=== PATIENT | male | born 1975 | race Hispanic/Latino ===

== ENCOUNTER 2018-08-17 16:31 | Inpatient (IN) | payer OTHER ==
[~2018-08-17] VITALS: Ht 172.7 cm; Wt 81.6 kg
[2018-08-17 17:10] LABS: BASOPHILS % (AUTO) 0.4 % (0.0-5.0); EOSINOPHILS % (AUTO) 1.1 % (0.0-8.0); HEMATOCRIT 46.7 % (42-54); LYMPHOCYTES % (AUTO) 10.5 % (21.0-51.0); MEAN CORPUSCULAR HEMOGLOBIN 27.6 pg (27.0-33.0); MEAN CORPUSCULAR HGB CONC 32.8 g/dL (32.0-36.0); MEAN CORPUSCULAR VOLUME 84.3 fL (79-99); MONOCYTES % (AUTO) 7.8 % (3.0-13.0); NEUTROPHILS % (AUTO) 80.2 % (40.0-77.0); PLATELET COUNT (AUTO) 207 K/uL (130-400); RED BLOOD CELL COUNT(AUTO) 5.53 MIL/uL (4.50-6.20); RED CELL DISTRIBUTION WIDTH 13.6 % (11.0-15.5); WHITE BLOOD COUNT (AUTO) 7.7 K/uL (4.8-10.8)
[2018-08-17 17:21] LABS: CREATININE 1.2 mg/dL (0.5-1.5); POTASSIUM 3.7 mmol/L (3.5-5.1)
[2018-08-17] MEDS ORDERED: ONDANSETRON HCL 4 MG/2 ML VIAL ONE (17:22)
[2018-08-17] MEDS ORDERED: MORPHINE SULFATE 4 MG/1ML SYG ONE (17:23)
[2018-08-17 17:34] LABS: ALBUMIN 3.5 g/dL (3.5-5.0); BILIRUBIN,TOTAL 0.6 mg/dL (0.2-1.0); TOTAL PROTEIN, SERUM 8.2 g/dL (6.0-8.3)
[2018-08-17] MEDS ORDERED: MORPHINE SULFATE 8 MG/ML VIAL ONE (18:36)
[2018-08-17] MEDS ORDERED: ZOSYN 3.375GM+NS 50ML 50 ML IV ONE (18:36)
[2018-08-17] MEDS ORDERED: SODIUM CHLORIDE 0.9% 100 ML IV ONE (18:37)
[2018-08-17] MEDS ORDERED: ONDANSETRON HCL 4 MG/2 ML VIAL IVP PRN (19:00)
[2018-08-17 19:02] LABS: APPEARANCE,URINE Clear (CLEAR); BILIRUBIN,URINE Negative (NEGATIVE); COLOR,URINE Yellow (YELLOW); GLUCOSE, URINE (UA) Negative (NEGATIVE); KETONES,URINE Trace mg/dL (NEGATIVE); LEUKOCYTE ESTERASE ,URINE Negative (NEGATIVE); NITRATE,URINE Negative (NEGATIVE); OCCULT BLOOD,URINE Negative (NEGATIVE); PROTEIN,URINE Negative (NEGATIVE); UROBILINOGEN,URINE 0.2 mg/dL (0.2-1.0)
[2018-08-17 20:00] VITALS: BP_SYST 120; BP_SYST 131; BP_DIAS 74; BP_DIAS 85
[2018-08-17] MEDS: MORPHINE SULFATE 4 MG/1ML SYG IVP PRN (22:45)
[2018-08-18] VITALS (23 sets, daily range): BP systolic 122–154; BP diastolic 64–93
[2018-08-18] MEDS: ZOSYN 3.375GM+NS 50ML 50 ML IV SCH ×3 (01:42→16:35)
[2018-08-18] MEDS: MORPHINE SULFATE 4 MG/1ML SYG IVP PRN ×2 (03:18→09:55)
[2018-08-18 04:38] LABS: HEMATOCRIT 41.4 % (42-54); MEAN CORPUSCULAR HEMOGLOBIN 27.6 pg (27.0-33.0); MEAN CORPUSCULAR VOLUME 83.7 fL (79-99); PLATELET COUNT (AUTO) 183 K/uL (130-400); RED BLOOD CELL COUNT(AUTO) 4.94 MIL/uL (4.50-6.20); RED CELL DISTRIBUTION WIDTH 13.3 % (11.0-15.5)
[2018-08-18 05:01] LABS: BILIRUBIN,TOTAL 0.6 mg/dL (0.2-1.0); POTASSIUM 3.6 mmol/L (3.5-5.1)
[2018-08-18] MEDS ORDERED: ROCURONIUM 10MG/1ML SYR 10 MG/ML ML ONE (07:18)
[2018-08-18] MEDS ORDERED: LIDOCAINE PF 2% 5ML ABBOJECT ONE (07:18)
[2018-08-18] MEDS ORDERED: PROPOFOL 10 MG/ML 20ML VIAL IV ONE (07:18)
[2018-08-18] MEDS ORDERED: MIDAZOLAM HCL 1 MG/ML 2ML VIAL ONE (07:18)
[2018-08-18] MEDS ORDERED: FENTANYL CITRATE PF 50 MCG/1 ML 5ML AMP IV ONE (07:18)
[2018-08-18] MEDS ORDERED: SUCCINYLCHOLINE CHLORIDE 20 MG/ML 10 ML VIAL ONE (07:18)
[2018-08-18] MEDS ORDERED: ONDANSETRON HCL 4 MG/2 ML VIAL ONE (07:21)
[2018-08-18] MEDS ORDERED: BUPIVACAINE/PF 0.5% 10ML VIAL ONE (08:01)
[2018-08-18] MEDS ORDERED: OCTYL 2-CYANOACRYLATE 1 EACH TP ONE (08:01)
[2018-08-18] MEDS ORDERED: MEPERIDINE-PF 25 MG/ML SYG ONE (09:37)
[2018-08-18] MEDS ORDERED: GLYCOPYRROLATE 1 MG/5 ML SYRINGE ONE (09:39)
--- NOTE | 2018-08-18 12:00 | NUR ---
PATIENT STATUS PATIENT REPORTS TOLERATING CLEAR LIQUID DIET. PATIENT REPORTS ABDOMINAL DISCOMFORT BUT PATIENT REFUSES PAIN MEDICATION AT THIS TIME.
--- NOTE | 2018-08-18 17:30 | NUR ---
PATIENT STATUS PATIENT REPORTS TOLERATING SOFT DIET WELL. PATIENT REPORTS ABDOMINAL PAIN 4/10 BUT REFUSED PAIN MEDICATION. PATIENT REPORTS THAT HE WOULD FEEL MORE COMFORTABLE TO BE DISCHARGED TOMORROW IN ORDER TO BE MONITORED FOR RETURN OF SEVERE ABDOMINAL PAIN. WILL CONTINUE TO MONITOR.
[2018-08-18] MEDS: ACETAMINOPHEN 325 MG TAB PO PRN (21:38)
[2018-08-19] MEDS: ZOSYN 3.375GM+NS 50ML 50 ML IV SCH ×2 (01:39→10:51)
[2018-08-19 03:40] VITALS: BP 122/70
[2018-08-19 04:13] LABS: HEMATOCRIT 35.6 % (42-54); MEAN CORPUSCULAR HEMOGLOBIN 27.9 pg (27.0-33.0); MEAN CORPUSCULAR HGB CONC 33.5 g/dL (32.0-36.0); MEAN CORPUSCULAR VOLUME 83.3 fL (79-99); PLATELET COUNT (AUTO) 193 K/uL (130-400); RED BLOOD CELL COUNT(AUTO) 4.28 MIL/uL (4.50-6.20); RED CELL DISTRIBUTION WIDTH 13.3 % (11.0-15.5); WHITE BLOOD COUNT (AUTO) 7.1 K/uL (4.8-10.8)
[2018-08-19 04:34] LABS: ALBUMIN 2.5 g/dL (3.5-5.0); BILIRUBIN,TOTAL 0.4 mg/dL (0.2-1.0); CREATININE 0.9 mg/dL (0.5-1.5); POTASSIUM 3.3 mmol/L (3.5-5.1); TOTAL PROTEIN, SERUM 6.1 g/dL (6.0-8.3)
[2018-08-19] MEDS: ACETAMINOPHEN 325 MG TAB PO PRN ×2 (05:21→11:13)
[2018-08-19 07:23] VITALS: BP 129/78
[2018-08-19 11:16] VITALS: BP 125/84
[2018-08-19] MEDS ORDERED: POTASSIUM CHLORIDE 20 MEQ ERTAB PO ONE (12:46)
[2018-08-19] MEDS ORDERED: POTASSIUM CHLORIDE 20 MEQ ERTAB PO SCH (13:45)
== END 2018-08-19 14:32 | disposition home or self-care (01) | DRG 419 ==
LOC: EDH 16:31 → OBSVTOIN 16:32 → EDHIP 16:32 → 4BH 19:59
PROVIDERS: ADMIT Student in an Organized Health Care Education/Training Program; ATTEND Student in an Organized Health Care Education/Training Program
PROC: 0FT44ZZ Resection of Gallbladder, Percutaneous Endoscopic Approach (ICD-10-PCS; principal; 2018-08-18 08:00)
DX: K81.0 Acute cholecystitis (principal); K82.A1 Gangrene of gallbladder in cholecystitis; K66.0 Peritoneal adhesions (postprocedural) (postinfection)
CPT/HCPCS: 36415; 74176; 76705; 80053; 81003; 82150; 83690; 84484; 85025; 85027; 88304; 93005; G0378; J0330; J2001; J2175; J2250; J2270; J2405; J2543; J2704; J3010; J3490; J7030